=== PATIENT | male | born 1955 | race Two or more races ===

== ENCOUNTER → 2022-02-06 | Outpatient (CLI) | payer MEDICARE ==
[2022-02-06 12:11] LABS: MEAN CORPUSCULAR HEMOGLOBIN 27.3 pg (27.0-33.0); MEAN CORPUSCULAR HGB CONC 31.8 g/dl (32.0-36.5); MEAN CORPUSCULAR VOLUME 85.9 fl (80.0-96.0); PLATELET COUNT, AUTOMATED 228 10^3/uL (150-450); RED BLOOD COUNT 5.12 10^6/uL (4.30-6.10); WHITE BLOOD COUNT 5.2 10^3/uL (4.0-10.0)
== END ==
LOC: M LAB 10:11
DX: R31.9 Hematuria, unspecified (principal)

== ENCOUNTER 2022-02-09 10:24 | Emergency (ER) | payer MEDICARE ==
[~2022-02-09] VITALS: Ht 182.9 cm; Wt 84.5 kg
[2022-02-09 10:25] VITALS: BP 141/66
== END 2022-02-09 13:01 | disposition left against medical advice (07) ==
LOC: M ED 10:24
DX: Z53.21 Procedure and treatment not carried out due to patient leaving prior to being seen by health care provider (principal)

== ENCOUNTER → 2022-02-09 | Outpatient (CLI) | payer MEDICARE | LOC: M PLARAD 09:08 | PROVIDERS: ATTEND Psychiatry & Neurology Neurology | DX: R51.9 Headache, unspecified (principal); G89.29 Other chronic pain ==

== ENCOUNTER → 2022-02-09 | Outpatient (CLI) | payer MEDICARE | LOC: M PLARAD 09:09 | DX: I63.9 Cerebral infarction, unspecified (principal); R51.9 Headache, unspecified; G89.29 Other chronic pain; I72.0 Aneurysm of carotid artery; I66.01 Occlusion and stenosis of right middle cerebral artery ==